=== PATIENT | female | born 1955 | race Caucasian/White ===

== ENCOUNTER 2017-01-04 03:44 | Emergency (ER) | payer MEDICARE, MEDICAID ==
[~2017-01-04] VITALS: Ht 160 cm; Wt 100.0 kg
[~2017-01-04 03:44] MED LIST: ADVIL200 MG PO; ALAVERT10 M1 PO; ALBUTEROL0.83 MG/ML IH; ALLERGY SHOT INJ; AMIODARONE PO; AMOXICILLIN 50500 MG PO; AMOXICILLIN 8751 TAB PO; ASTELIN NASAL S34 ML; ASTELIN NASAL S34 ML NS; ATARAX25 MG PO; BACTRIM DS 8001 TAB PO; BENADRYL25 M2 PO; CARAFATE 1GM1 G PO; CARDIZEM CD 18180 MG PO; CARDIZEM CD 24240 MG PO; CEFTIN 250250 MG/TAB PO; CEFTIN250 M1 PO; CEFTIN500 MG PO; CELEBREX 200MG200 MG PO; CEPHALEXIN250 M1 PO; CEPHALEXIN500 M1 PO; CIPRO 500MG TA500 MG PO; CLEOCIN HC150 MG/CAP PO; CLEOCIN HCL300 MG PO; COLACE 100100 MG/CAP PO; COUMADIN 5MG5 MG/TAB PO; COZAAR25 MG PO; DARVOCET N; DEMEROL 50M50 MG/TAB PO; DEMEROL IJ; DIFLUCAN 100MG100 MG PO; DIFLUCAN50 MG PO; DILTIAZEM240 M1 PO; DULERA1 AR1 IH; ENABLEX 7.5MG7.5 MG; EPIPEN 2-PAK1 MG/ML IM; FLEXERIL 1010 MG/TAB PO; FLONASE NASAL S16 GM NS; FLONASEALLERGY NS; FOLIC ACID 40400 MCG PO; FOLIC ACID1 MG PO; HYDROCODONE BIT1 T41 PO; HYDROCODONE/APAP; HYDROMORPHONE HC2 MG PO; HYDROXYCHLOROQUINE PO; IMITREX 25MG TA25 MG PO; IMITREX 6M6 MG/0.5 M SQ; IMITREX ST4 MG/0.5 M SC; IRON325 M1 PO; LEVAQUIN 5500 MG/TA1 PO; LEVAQUIN 5500 MG/TAB PO; LEVAQUIN 750MG750 M1 PO; LEVOFLOXACIN; LIDO35.4 TP; LIDODERM PATCH TP; LISINOPRIL10 MG PO; LORTAB 10/500 51 TAB PO; LORTAB 5/500 501 TAB PO; LORTAB 7.5/5001 TAB PO; LOVENOX 100100 MG/ML SQ; LOVENOX 4040 MG/0.4 SQ; MACROBID 1100 MG/CAP; MACROBID 1100 MG/CAP PO; MACRODANTIN25 MG PO; MEPERIDINE HCL50 MG PO; MIRALAX 17GM PK1 PKT PO; MYRBETR50MG PO; NAPROSYN500 MG PO; NEURONTIN300 MG/CAP PO; NEURONTIN600 MG PO; NEURONTIN600 MG/TAB PO; NEXIUM 40MG40 MG PEG; NEXIUM 40MG40 MG PO; NEXIUM40 MG PO; NORCO 325 MG-51 TAB PO; NORCO 325 MG-7.1 TAB PO; PERCOCET 325 MG1 TA2 PO; PERCOCET 325 MG1 TA3 PO; PHENERGAN 25 TA25 MG PO; PHENERGAN25 MG RC; PREDNISONE20 MG PO; PREMARIN 0.60.625 MG PO; PROAIR HFA0.09 MG/AC IH; PROTONIX 40MG T40 MG PO; PROVENTIL0.09 MG/A1 IH; PYRIDIATE200 MG PO; PYRIDIUM 100MG100 MG PO; PYRIDIUM200 M1 PO; ROXICODONE 55 MG/TAB PO; SEPTRA DS 8001 TAB PO; SINGULAIR10 MG PO; TESSALON P100 MG/CAP PO; URICALM PO; VENTOLIN0.09 MG IH; VERAMYST27.5 MCG/A NS; VESICARE10 MG PO; VICODIN 5/5001 UDTAB PO; VITAMIN C PUR1000 MG PO; XANAX .25M0.25 MG/TA PO; XARELTO20 MG PO; ZETIA 10MG TAB10 MG PO; ZETIA10 MG PO; ZITHROMAX250 M1 PO; ZOFRAN 4MG T4 MG/TAB PO; ZOFRAN 8MG8 MG PO; ZOFRAN ODT4 MG PO; ZOFRAN ODT8 MG PO; ZOFRAN4 MG PO; ZOVIRAX 200MG200 MG PO; ZOVIRAX800 MG PO; ZYRTEC-D 5 MG-11 TER PO; [UNRECOGNIZED DRUG - OTHER]; [UNRECOGNIZED DRUG - OTHER] PO; vesicare PO
[2017-01-04 04:04] VITALS: TEMP 98
[2017-01-04] MEDS ORDERED: NORCO 325 MG-51 TAB PO (04:10)
[2017-01-04] MEDS ORDERED: PREDNISONE20 MG PO (04:30)
[2017-01-04] MEDS ORDERED: OMNICEF 300MG300 MG PO (04:30)
[2017-01-04 05:31] LABS: INFLUENZA B NEGATIVE
[2017-01-04 06:21] VITALS: BP 142/84; PULSE 84
== END 2017-01-04 06:22 | disposition home or self-care (01) ==
LOC: COL.ER 03:44
PROVIDERS: Emergency Medicine
DX: R51 Headache (principal); J32.9 Chronic sinusitis, unspecified; J40 Bronchitis, not specified as acute or chronic; Z86.718 Personal history of other venous thrombosis and embolism; Z79.01 Long term (current) use of anticoagulants
CPT/HCPCS: J7512

== ENCOUNTER 2017-03-14 11:10 | Emergency (ER) | payer MEDICARE, MEDICAID ==
[~2017-03-14] VITALS: Ht 160 cm; Wt 97.7 kg
[~2017-03-14 11:10] MED LIST changes: +OMNICEF 300MG300 MG PO
[2017-03-14 11:13] VITALS: TEMP 97.9
[2017-03-14] MEDS ORDERED: CEPHALEXIN500 M1 PO (11:42)
[2017-03-14 12:25] VITALS: BP 138/89; PULSE 59
== END 2017-03-14 12:29 | disposition home or self-care (01) ==
LOC: COL.ER 11:10
DX: S63.502A Unspecified sprain of left wrist, initial encounter (principal); X58.XXXA Exposure to other specified factors, initial encounter

== ENCOUNTER 2017-03-20 13:57 | Emergency (ER) | payer MEDICARE, MEDICAID ==
[~2017-03-20] VITALS: Ht 160 cm; Wt 102.3 kg
[2017-03-20 13:59] VITALS: BP 146/49; TEMP 98.7
[2017-03-20 14:45] LABS: BASO # 0.1 (0.0-0.2); BASO % 0.5 % (0.0-2.0); EOS # 0.1 (0.0-0.7); EOS % 0.6 % (0-4.0); GRAN # 7.6 (1.4-6.5); GRAN % 69.7 % (42.2-75.2); HEMATOCRIT 37.5 % (37.0-47.0); HEMOGLOBIN 12.1 g/dl (12.5-16.0); LYMPH # 2.6 (1.2-3.4); LYMPH % 23.4 % (20.0-51.0); MEAN CELL VOLUME 89 fl (80.0-100.0); MEAN CORPUSCULAR HEMOGLOBIN 29 pg (27.0-31.0); MEAN CORPUSCULAR HGB CONC 32 g/dl (33.0-37.0); MEAN PLATELET VOLUME 11.8 fl (7.4-10.4); MONO # 0.6 (0.1-0.6); MONO % 5.6 % (1.7-9.3); PLATELET COUNT 205 K/mm3 (130-400); RED BLOOD COUNT 4.22 M/mm3 (4.10-5.30); REDCELL DISTRIBUTION WIDTH-CV 13.8 % (11.5-14.5); WHITE BLOOD COUNT 10.9 K/mm3 (4.8-10.8)
[2017-03-20 14:52] LABS: ALANINE AMINOTRANSFERASE 36 U/L (9-52); ALBUMIN 3.9 gm/dL (3.5-5.0); ALKALINE PHOSPHATASE 89 U/L (50-136); ANION GAP 10 mmol/L (7-16); BILIRUBIN,TOTAL 0.7 mg/dL (0.0-1.0); BLOOD UREA NITROGEN 24 mg/dL (7-17); CALCIUM 8.9 mg/dL (8.4-10.2); CARBON DIOXIDE 24 mmol/L (22-30); CHLORIDE 104 mmol/L (98-107); GLUCOSE 96 mg/dL (74-106); LIPASE 27 U/L (23-300); POTASSIUM 3.8 mmol/L (3.4-5.0); SODIUM 138 mmol/L (137-145); TOTAL PROTEIN 6.8 gm/dL (6.4-8.2)
[2017-03-20 15:04] LABS: B-TYPE NATRIURETIC PEPTIDE 129 pg/mL (0-125)
[2017-03-20 15:09] LABS: PARTIAL THROMBOPLASTIN TIME 38.1 SECONDS (26.0-37.0); TROPONIN-I < 0.012 ng/mL (0.000-0.034)
[2017-03-20 15:15] LABS: INR 1.5 (0.8-3.0); PROTHROMBIN TIME 16.3 SECONDS (9.7-12.8)
[2017-03-20 16:10] VITALS: PULSE 71
== END 2017-03-20 16:10 | disposition home or self-care (01) ==
LOC: COL.ER 13:57
PROVIDERS: Emergency Medicine
DX: R07.9 Chest pain, unspecified (principal); I10 Essential (primary) hypertension; Z85.3 Personal history of malignant neoplasm of breast; D68.51 Activated protein C resistance

== ENCOUNTER 2017-03-29 17:43 | Emergency (ER) | payer MEDICARE, MEDICAID ==
[~2017-03-29] VITALS: Ht 160 cm; Wt 101.4 kg
[2017-03-29 17:50] VITALS: TEMP 98.5
[2017-03-29 19:45] VITALS: BP 144/91; PULSE 70
== END 2017-03-29 19:45 | disposition home or self-care (01) ==
LOC: COL.ER 17:43
DX: G43.909 Migraine, unspecified, not intractable, without status migrainosus (principal); I10 Essential (primary) hypertension; Z79.01 Long term (current) use of anticoagulants; D68.51 Activated protein C resistance
CPT/HCPCS: J0595; J2550

== ENCOUNTER 2017-04-26 09:43 | Emergency (ER) | payer MEDICARE, MEDICAID ==
[~2017-04-26] VITALS: Ht 160 cm; Wt 100.0 kg
[2017-04-26 09:55] VITALS: BP 150/74; PULSE 62; TEMP 97.7
[2017-04-26 11:05] LABS: BASO # 0.1 (0.0-0.2); BASO % 0.6 % (0.0-2.0); EOS # 0.1 (0.0-0.7); EOS % 1.2 % (0-4.0); GRAN # 5.2 (1.4-6.5); GRAN % 67.4 % (42.2-75.2); HEMOGLOBIN 13.3 g/dl (12.5-16.0); LYMPH # 1.9 (1.2-3.4); LYMPH % 24.7 % (20.0-51.0); MEAN CELL VOLUME 89 fl (80.0-100.0); MEAN CORPUSCULAR HEMOGLOBIN 30 pg (27.0-31.0); MEAN CORPUSCULAR HGB CONC 33 g/dl (33.0-37.0); MEAN PLATELET VOLUME 11.8 fl (7.4-10.4); MONO # 0.5 (0.1-0.6); MONO % 5.8 % (1.7-9.3); PLATELET COUNT 209 K/mm3 (130-400); RED BLOOD COUNT 4.48 M/mm3 (4.10-5.30); REDCELL DISTRIBUTION WIDTH-CV 13.2 % (11.5-14.5); WHITE BLOOD COUNT 7.8 K/mm3 (4.8-10.8)
[2017-04-26 11:10] LABS: PH 7 (5-8); SQUAMOUS EPITHELIAL 0-2 /hpf; URINE APPEARANCE Clear; URINE BILIRUBIN Negative (NEGATIVE); URINE BLOOD Negative (NEGATIVE); URINE COLOR Yellow; URINE GLUCOSE Negative (NEGATIVE); URINE KETONE Negative (NEGATIVE); URINE RBC 0-2 /hpf; URINE UROBILINOGEN Negative (NEGATIVE)
[2017-04-26 11:13] LABS: URINE BACTERIA Occasional /hpf
[2017-04-26 11:16] LABS: ADJUSTED CALCIUM 9.1 mg/dL (8.4-10.2); ALBUMIN 4.3 gm/dL (3.5-5.0); BILIRUBIN,TOTAL 0.8 mg/dL (0.0-1.0); CALCIUM 9.3 mg/dL (8.4-10.2); CREATININE, serum 0.61 mg/dL (0.52-1.25); TOTAL PROTEIN 7.4 gm/dL (6.4-8.2)
[2017-04-26] MEDS ORDERED: PYRIDIUM 100MG100 MG PO (11:37)
[2017-04-26] MEDS ORDERED: DIFLUCAN150 MG PO (11:37)
[2017-04-26] MEDS ORDERED: PERCOCET 325 MG1 TA2 PO (11:37)
[2017-04-26] MEDS ORDERED: CEFTIN 250250 MG/TAB PO (11:37)
== END 2017-04-26 12:07 | disposition home or self-care (01) ==
LOC: COL.ER 09:43
PROVIDERS: Nurse Practitioner
DX: N39.0 Urinary tract infection, site not specified (principal)
CPT/HCPCS: J2550

== ENCOUNTER → 2017-06-04 | Outpatient (CLI) | payer MEDICARE, MEDICAID ==
[~2017-06-04] MED LIST changes: +DIFLUCAN150 MG PO
== END ==
LOC: MC.RAD 08:15
DX: Z01.89 Encounter for other specified special examinations (principal)

== ENCOUNTER 2017-11-23 07:05 | Emergency (ER) | payer MEDICARE, MEDICAID ==
[~2017-11-23] VITALS: Ht 160 cm; Wt 100.0 kg
[2017-11-23 07:07] VITALS: TEMP 98.1
[2017-11-23] MEDS ORDERED: NORCO 325 MG-51 TAB PO (07:27)
[2017-11-23] MEDS ORDERED: XARELTO20 MG PO (07:28)
[2017-11-23 07:57] LABS: COLLECTION METHOD CLEAN CATCH
[2017-11-23 08:13] LABS: MUCOUS Present /lpf; PH 6 (5-8); SQUAMOUS EPITHELIAL 0-2 /hpf; URINE APPEARANCE Clear; URINE BACTERIA None Seen /hpf; URINE BILIRUBIN Negative (NEGATIVE); URINE BLOOD Negative (NEGATIVE); URINE COLOR Straw; URINE GLUCOSE Negative (NEGATIVE); URINE KETONE Negative (NEGATIVE); URINE LEUKOCYTE ESTERASE Negative (NEGATIVE); URINE NITRATE Negative (NEGATIVE); URINE PROTEIN(semi-quant) Negative (NEGATIVE); URINE RBC 0-2 /hpf; URINE UROBILINOGEN Negative (NEGATIVE)
[2017-11-23 09:20] LABS: ALANINE AMINOTRANSFERASE 30 U/L (9-52); ALBUMIN 4.4 gm/dL (3.5-5.0); ALKALINE PHOSPHATASE 116 U/L (50-136); ANION GAP 11 mmol/L (7-16); AST,SGOT 20 U/L (15-37); BILIRUBIN,TOTAL 0.6 mg/dL (0.0-1.0); BLOOD UREA NITROGEN 16 mg/dL (7-17); CALCIUM 9.4 mg/dL (8.4-10.2); CARBON DIOXIDE 25 mmol/L (22-30); CHLORIDE 105 mmol/L (98-107); CREATININE, serum 0.59 mg/dL (0.52-1.25); GLUCOSE 108 mg/dL (74-106); LIPASE 22 U/L (23-300); POTASSIUM 3.9 mmol/L (3.4-5.0); SODIUM 140 mmol/L (137-145); TOTAL PROTEIN 7.2 gm/dL (6.4-8.2)
[2017-11-23 09:29] LABS: BASO % 0.5 % (0.0-2.0); EOS % 0.2 % (0-4.0); GRAN # 6.1 (1.4-6.5); GRAN % 72.2 % (42.2-75.2); HEMATOCRIT 39.8 % (37.0-47.0); HEMOGLOBIN 13.4 g/dl (12.5-16.0); LYMPH # 1.9 (1.2-3.4); LYMPH % 22.1 % (20.0-51.0); MEAN CELL VOLUME 86 fl (80.0-100.0); MEAN CORPUSCULAR HEMOGLOBIN 29 pg (27.0-31.0); MEAN CORPUSCULAR HGB CONC 34 g/dl (33.0-37.0); MEAN PLATELET VOLUME 12.3 fl (7.4-10.4); MONO # 0.4 (0.1-0.6); MONO % 4.9 % (1.7-9.3); PLATELET COUNT 168 K/mm3 (130-400); RED BLOOD COUNT 4.62 M/mm3 (4.10-5.30); REDCELL DISTRIBUTION WIDTH-CV 13.3 % (11.5-14.5)
[2017-11-23 09:31] LABS: TROPONIN-I < 0.012 ng/mL (0.000-0.034)
[2017-11-23] MEDS ORDERED: CARAFATE 1GM1 G PO (10:38)
[2017-11-23] MEDS ORDERED: PHENERGAN 25 TA25 MG PO (10:38)
[2017-11-23] MEDS ORDERED: PERCOCET 325 MG1 TA2 PO (11:39)
[2017-11-23 11:49] VITALS: BP 150/68; PULSE 70
== END 2017-11-23 11:49 | disposition home or self-care (01) ==
LOC: COL.ER 07:05
PROVIDERS: Emergency Medicine
DX: R10.13 Epigastric pain (principal); M79.7 Fibromyalgia; F41.9 Anxiety disorder, unspecified; Z90.89 Acquired absence of other organs; Z90.49 Acquired absence of other specified parts of digestive tract; Z87.891 Personal history of nicotine dependence; Z90.710 Acquired absence of both cervix and uterus
CPT/HCPCS: J2175

== ENCOUNTER → 2017-12-16 | Outpatient (CLI) | payer MEDICARE, MEDICAID | LOC: COL.RAD 12-15 10:30 | DX: K22.4 Dyskinesia of esophagus (principal); K21.9 Gastro-esophageal reflux disease without esophagitis; K44.9 Diaphragmatic hernia without obstruction or gangrene ==

== ENCOUNTER 2018-02-06 16:38 | Emergency (ER) | payer MEDICARE, MEDICAID ==
[~2018-02-06] VITALS: Ht 160 cm; Wt 98.2 kg
[2018-02-06 16:39] VITALS: TEMP 97.8
[2018-02-06] MEDS ORDERED: AMOXICILLIN 8751 TAB PO (17:05)
[2018-02-06 18:20] LABS: BASO # 0.1 (0.0-0.2); BASO % 0.4 % (0.0-2.0); EOS % 0.4 % (0-4.0); GRAN # 8.1 (1.4-6.5); GRAN % 71.8 % (42.2-75.2); HEMATOCRIT 40.8 % (37.0-47.0); HEMOGLOBIN 13.4 g/dl (12.5-16.0); LYMPH # 2.4 (1.2-3.4); LYMPH % 21.1 % (20.0-51.0); MEAN CELL VOLUME 87 fl (80.0-100.0); MEAN CORPUSCULAR HEMOGLOBIN 29 pg (27.0-31.0); MEAN CORPUSCULAR HGB CONC 33 g/dl (33.0-37.0); MEAN PLATELET VOLUME 12.5 fl (7.4-10.4); MONO # 0.7 (0.1-0.6); PLATELET COUNT 218 K/mm3 (130-400); RED BLOOD COUNT 4.68 M/mm3 (4.10-5.30); REDCELL DISTRIBUTION WIDTH-CV 13.3 % (11.5-14.5)
[2018-02-06 18:50] LABS: ALBUMIN 3.7 gm/dL (3.5-5.0); BILIRUBIN,TOTAL 0.3 mg/dL (0.0-1.0); CALCIUM 8.4 mg/dL (8.4-10.2); CREATININE, serum 0.67 mg/dL (0.52-1.25); POTASSIUM 3.9 mmol/L (3.4-5.0); TOTAL PROTEIN 6.4 gm/dL (6.4-8.2)
[2018-02-06 19:21] VITALS: BP 149/63; PULSE 71
== END 2018-02-06 19:22 | disposition home or self-care (01) ==
LOC: COL.ER 16:38
PROVIDERS: Emergency Medicine
DX: R19.7 Diarrhea, unspecified (principal); I10 Essential (primary) hypertension; K58.9 Irritable bowel syndrome, unspecified; K21.9 Gastro-esophageal reflux disease without esophagitis; J44.9 Chronic obstructive pulmonary disease, unspecified; Z87.11 Personal history of peptic ulcer disease; Z79.51 Long term (current) use of inhaled steroids; Z79.01 Long term (current) use of anticoagulants
CPT/HCPCS: J2550; J7030

== ENCOUNTER 2018-02-10 21:55 | Emergency (ER) | payer MEDICARE, MEDICAID ==
[~2018-02-10] VITALS: Ht 160 cm; Wt 98.2 kg
[2018-02-10 21:58] VITALS: BP 148/84; TEMP 97.7
[2018-02-10 23:20] VITALS: PULSE 67
== END 2018-02-10 23:20 | disposition home or self-care (01) ==
LOC: COL.ER 21:55
DX: S86.912A Strain of unspecified muscle(s) and tendon(s) at lower leg level, left leg, initial encounter (principal); I10 Essential (primary) hypertension; J45.909 Unspecified asthma, uncomplicated; Z90.710 Acquired absence of both cervix and uterus; Z90.49 Acquired absence of other specified parts of digestive tract; Z98.890 Other specified postprocedural states; Z79.51 Long term (current) use of inhaled steroids; X50.0XXA Overexertion from strenuous movement or load, initial encounter

== ENCOUNTER 2018-03-09 18:14 | Emergency (ER) | payer MEDICARE, MEDICAID ==
[2018-03-09 18:16] VITALS: BP 187/82; TEMP 98.9
[2018-03-09] MEDS ORDERED: VITAMINC1000TA (18:57)
[2018-03-09] MEDS ORDERED: NATURAL IRON65 MG (18:57)
[2018-03-09] MEDS ORDERED: D3-5050000 IU (18:57)
[2018-03-09 19:27] VITALS: PULSE 56
== END 2018-03-09 19:28 | disposition home or self-care (01) ==
LOC: COL.ER 18:14
DX: G43.909 Migraine, unspecified, not intractable, without status migrainosus (principal); I10 Essential (primary) hypertension; J45.909 Unspecified asthma, uncomplicated; D68.51 Activated protein C resistance; Z87.39 Personal history of other diseases of the musculoskeletal system and connective tissue; Z87.891 Personal history of nicotine dependence; Z90.49 Acquired absence of other specified parts of digestive tract; Z90.89 Acquired absence of other organs
CPT/HCPCS: J0595; J2550

== ENCOUNTER 2018-05-15 18:28 | Emergency (ER) | payer MEDICARE, MEDICAID ==
[~2018-05-15] VITALS: Ht 160 cm; Wt 93.2 kg
[~2018-05-15 18:28] MED LIST changes: +D3-5050000 IU; +NATURAL IRON65 MG; +VITAMINC1000TA
[2018-05-15 18:34] VITALS: BP 144/70; PULSE 91; TEMP 98.1
[2018-05-15] MEDS ORDERED: SINGULAIR 110 MG/TAB PO (19:02)
[2018-05-15] MEDS ORDERED: CRANBERRY500 M3 PO (19:03)
[2018-05-15] MEDS ORDERED: MEDROL 4MG DOSPA4 MG PO (19:23)
== END 2018-05-15 19:52 | disposition home or self-care (01) ==
LOC: COL.ER 18:28
DX: R22.32 Localized swelling, mass and lump, left upper limb (principal); I10 Essential (primary) hypertension; M79.7 Fibromyalgia; E78.5 Hyperlipidemia, unspecified; K21.9 Gastro-esophageal reflux disease without esophagitis; Z98.890 Other specified postprocedural states
CPT/HCPCS: J7509

== ENCOUNTER → 2018-06-11 | Emergency (ER) | payer MEDICARE, MEDICAID ==
[~2018-06-11] VITALS: Ht 160 cm; Wt 102.3 kg
[~2018-06-11] MED LIST changes: +CRANBERRY500 M3 PO; +MEDROL 4MG DOSPA4 MG PO; +SINGULAIR 110 MG/TAB PO
[2018-06-11 16:18] VITALS: BP 162/74; PULSE 67; TEMP 98.1
== END ==
LOC: COL.ER 16:12
DX: G43.909 Migraine, unspecified, not intractable, without status migrainosus (principal); I10 Essential (primary) hypertension; Z90.49 Acquired absence of other specified parts of digestive tract; Z90.89 Acquired absence of other organs; Z90.710 Acquired absence of both cervix and uterus; Z98.890 Other specified postprocedural states; Z86.73 Personal history of transient ischemic attack (TIA), and cerebral infarction without residual deficits
CPT/HCPCS: J2175; J2550

== ENCOUNTER → 2018-06-11 | Outpatient (CLI) | payer MEDICARE, MEDICAID | LOC: COL.RAD 13:24 | DX: R10.9 Unspecified abdominal pain (principal); Z90.49 Acquired absence of other specified parts of digestive tract | CPT/HCPCS: Q9967 ==

== ENCOUNTER 2018-06-22 15:05 | Emergency (ER) | payer MEDICARE, MEDICAID ==
[~2018-06-22] VITALS: Ht 160 cm; Wt 100.0 kg
[2018-06-22 15:10] VITALS: BP 151/90; TEMP 97.7
[2018-06-22 18:30] VITALS: PULSE 72
== END 2018-06-22 18:30 | disposition home or self-care (01) ==
LOC: COL.ER 15:05
DX: G43.909 Migraine, unspecified, not intractable, without status migrainosus (principal); I10 Essential (primary) hypertension; J45.909 Unspecified asthma, uncomplicated; M79.7 Fibromyalgia; K58.9 Irritable bowel syndrome, unspecified; Z87.891 Personal history of nicotine dependence
CPT/HCPCS: J0595; J2550

== ENCOUNTER 2018-08-03 17:01 | Emergency (ER) | payer MEDICARE, MEDICAID ==
[~2018-08-03] VITALS: Ht 160 cm; Wt 96.4 kg
[2018-08-03 17:10] VITALS: TEMP 98
[2018-08-03 18:32] LABS: HEMATOCRIT 39.3 % (37.0-47.0); HEMOGLOBIN 13.2 g/dl (12.5-16.0); MEAN CELL VOLUME 89 fl (80.0-100.0); MEAN CORPUSCULAR HEMOGLOBIN 30 pg (27.0-31.0); MEAN CORPUSCULAR HGB CONC 34 g/dl (33.0-37.0); MEAN PLATELET VOLUME 11.3 fl (7.4-10.4); PLATELET COUNT 220 K/mm3 (130-400); RED BLOOD COUNT 4.43 M/mm3 (4.10-5.30); REDCELL DISTRIBUTION WIDTH-CV 13.2 % (11.5-14.5)
[2018-08-03 18:47] LABS: ALBUMIN 3.9 gm/dL (3.5-5.0); BILIRUBIN,TOTAL 0.4 mg/dL (0.0-1.0); CALCIUM 8.8 mg/dL (8.4-10.2); CREATININE, serum 0.72 mg/dL (0.52-1.25); POTASSIUM 3.9 mmol/L (3.4-5.0); TOTAL PROTEIN 6.9 gm/dL (6.4-8.2)
[2018-08-03 19:45] VITALS: BP 121/78; PULSE 80
== END 2018-08-03 19:45 | disposition home or self-care (01) ==
LOC: COL.ER 17:01
PROVIDERS: Emergency Medicine
DX: M25.562 Pain in left knee (principal); M23.52 Chronic instability of knee, left knee; I82.409 Acute embolism and thrombosis of unspecified deep veins of unspecified lower extremity; E66.9 Obesity, unspecified; Z79.01 Long term (current) use of anticoagulants
CPT/HCPCS: L1846

== ENCOUNTER 2018-09-30 07:12 | Emergency (ER) | payer MEDICARE, MEDICAID ==
[~2018-09-30] VITALS: Ht 160 cm; Wt 97.7 kg
[2018-09-30 07:18] VITALS: BP 134/92; TEMP 97
[2018-09-30] MEDS ORDERED: AMOXICILLIN 8751 TAB PO (07:48)
[2018-09-30 07:54] VITALS: PULSE 72
[2018-09-30] MEDS ORDERED: AIMOVIG AU70 MG/1 ML SQ (07:54)
== END 2018-09-30 08:00 | disposition home or self-care (01) ==
LOC: COL.ER 07:12
DX: K02.9 Dental caries, unspecified (principal)

== ENCOUNTER 2018-10-05 07:56 | Emergency (ER) | payer MEDICARE, MEDICAID ==
[~2018-10-05] VITALS: Ht 160 cm; Wt 97.7 kg
[~2018-10-05 07:56] MED LIST changes: +AIMOVIG AU70 MG/1 ML SQ
[2018-10-05] MEDS ORDERED: CIPRO 500MG TA500 MG PO (10:02)
[2018-10-05 10:47] VITALS: BP 157/84; PULSE 63; TEMP 96.7
== END 2018-10-05 10:48 | disposition home or self-care (01) ==
LOC: COL.ER 07:56
DX: H60.11 Cellulitis of right external ear (principal); I10 Essential (primary) hypertension; Z90.710 Acquired absence of both cervix and uterus; Z90.89 Acquired absence of other organs; Z90.49 Acquired absence of other specified parts of digestive tract; Z98.890 Other specified postprocedural states; Z90.13 Acquired absence of bilateral breasts and nipples
CPT/HCPCS: J8540

== ENCOUNTER → 2018-12-30 | Outpatient (CLI) | payer MEDICARE, MEDICAID | LOC: COL.RAD 08:27 | DX: N28.89 Other specified disorders of kidney and ureter (principal); Z90.49 Acquired absence of other specified parts of digestive tract; Z90.710 Acquired absence of both cervix and uterus | CPT/HCPCS: Q9967 ==

== ENCOUNTER 2019-01-04 08:33 | Day surgery (SDC) | payer MEDICARE, MEDICAID ==
[~2019-01-04] VITALS: Ht 160 cm; Wt 102.3 kg
[2019-01-04 09:55] VITALS: BP 152/89; PULSE 70; TEMP 97.6
[2019-01-04] MEDS ORDERED: BENTYL 10MG10 MG/CAP PO (11:10)
[2019-01-04 11:20] VITALS: BP 131/75; PULSE 69; TEMP 97.5
[2019-01-04 11:35] VITALS: BP 147/76; PULSE 58
[2019-01-04 11:50] VITALS: BP 141/70; PULSE 60
[2019-01-04 12:05] VITALS: BP 143/75; PULSE 64
[2019-01-04 12:20] VITALS: BP 137/69; PULSE 59
== END 2019-01-04 12:50 | disposition home or self-care (01) ==
LOC: SDCO 08:33
DX: R11.0 Nausea (principal); R10.84 Generalized abdominal pain; K21.9 Gastro-esophageal reflux disease without esophagitis; J45.909 Unspecified asthma, uncomplicated; E78.00 Pure hypercholesterolemia, unspecified; M19.90 Unspecified osteoarthritis, unspecified site; E11.9 Type 2 diabetes mellitus without complications; K58.0 Irritable bowel syndrome with diarrhea; M79.7 Fibromyalgia; I73.00 Raynaud's syndrome without gangrene; K59.09 Other constipation; K31.7 Polyp of stomach and duodenum; F32.9 Major depressive disorder, single episode, unspecified; F41.9 Anxiety disorder, unspecified; G43.909 Migraine, unspecified, not intractable, without status migrainosus; G89.29 Other chronic pain; D64.9 Anemia, unspecified; Z86.010 Personal history of colon polyps; Z85.3 Personal history of malignant neoplasm of breast; Z87.440 Personal history of urinary (tract) infections; Z79.01 Long term (current) use of anticoagulants; Z88.1 Allergy status to other antibiotic agents; Z88.5 Allergy status to narcotic agent; Z88.3 Allergy status to other anti-infective agents; Z91.040 Latex allergy status; Z88.8 Allergy status to other drugs, medicaments and biological substances; Z91.048 Other nonmedicinal substance allergy status; Z91.041 Radiographic dye allergy status; Z90.13 Acquired absence of bilateral breasts and nipples; Z96.653 Presence of artificial knee joint, bilateral; Z86.73 Personal history of transient ischemic attack (TIA), and cerebral infarction without residual deficits
CPT/HCPCS: J2405; J2704; J7120

== ENCOUNTER 2019-03-26 18:40 | Emergency (ER) | payer MEDICARE, MEDICAID ==
[~2019-03-26] VITALS: Ht 160 cm; Wt 77.3 kg
[~2019-03-26 18:40] MED LIST changes: +BENTYL 10MG10 MG/CAP PO
[2019-03-26 18:44] VITALS: TEMP 97
[2019-03-26 19:05] LABS: COLLECTION METHOD CLEAN CATCH
[2019-03-26 19:14] LABS: MUCOUS Present /lpf; PH 5 (5-8); SQUAMOUS EPITHELIAL 0-2 /hpf; URINE APPEARANCE Hazy; URINE BACTERIA None Seen /hpf; URINE BILIRUBIN Negative (NEGATIVE); URINE BLOOD 1+ (NEGATIVE); URINE COLOR Yellow; URINE GLUCOSE Negative (NEGATIVE); URINE KETONE Negative (NEGATIVE); URINE LEUKOCYTE ESTERASE 2+ (NEGATIVE); URINE NITRATE Negative (NEGATIVE); URINE PROTEIN(semi-quant) Negative (NEGATIVE); URINE UROBILINOGEN >=4.0 mg/dL (NEGATIVE)
[2019-03-26] MEDS ORDERED: OMNICEF 300MG300 MG PO (19:36)
[2019-03-26] MEDS ORDERED: AZO URINARY PAI95 MG PO (19:36)
[2019-03-26 19:40] VITALS: BP 139/68; PULSE 74
[2019-03-28] MEDS ORDERED: AMOXICILLIN 50500 MG PO (13:14)
== END 2019-03-26 19:40 | disposition home or self-care (01) ==
LOC: COL.ER 18:40
PROVIDERS: Emergency Medicine
DX: N39.0 Urinary tract infection, site not specified (principal); N12 Tubulo-interstitial nephritis, not specified as acute or chronic

== ENCOUNTER 2019-05-18 11:06 | Emergency (ER) | payer MEDICARE, MEDICAID ==
[~2019-05-18] VITALS: Ht 160 cm; Wt 97.7 kg
[~2019-05-18 11:06] MED LIST changes: +AZO URINARY PAI95 MG PO
[2019-05-18 11:25] VITALS: BP 134/89; PULSE 77; TEMP 97
[2019-05-18 12:42] LABS: COLLECTION METHOD CLEAN CATCH
[2019-05-18 12:48] LABS: PH 6 (5-8); SQUAMOUS EPITHELIAL 0-2 /hpf; URINE APPEARANCE Clear; URINE BACTERIA None Seen /hpf; URINE BILIRUBIN Negative (NEGATIVE); URINE BLOOD Negative (NEGATIVE); URINE COLOR Yellow; URINE GLUCOSE Negative (NEGATIVE); URINE KETONE Negative (NEGATIVE); URINE LEUKOCYTE ESTERASE Negative (NEGATIVE); URINE NITRATE Negative (NEGATIVE); URINE PROTEIN(semi-quant) Negative (NEGATIVE); URINE RBC 0-2 /hpf; URINE UROBILINOGEN Negative (NEGATIVE)
[2019-05-18 13:20] LABS: BASO % 0.5 % (0.0-2.0); EOS # 0.1 (0.0-0.7); EOS % 0.9 % (0-4.0); GRAN # 4.4 (1.4-6.5); GRAN % 58.6 % (42.2-75.2); HEMATOCRIT 43.9 % (37.0-47.0); HEMOGLOBIN 14.6 g/dl (12.5-16.0); LYMPH # 2.4 (1.2-3.4); LYMPH % 32.4 % (20.0-51.0); MEAN CELL VOLUME 90 fl (80.0-100.0); MEAN CORPUSCULAR HEMOGLOBIN 30 pg (27.0-31.0); MEAN CORPUSCULAR HGB CONC 33 g/dl (33.0-37.0); MEAN PLATELET VOLUME 11.5 fl (7.4-10.4); MONO # 0.6 (0.1-0.6); MONO % 7.3 % (1.7-9.3); PLATELET COUNT 219 K/mm3 (130-400); RED BLOOD COUNT 4.89 M/mm3 (4.10-5.30)
[2019-05-18 13:34] LABS: ALANINE AMINOTRANSFERASE 22 U/L (9-52); ALBUMIN 4.2 gm/dL (3.5-5.0); ALKALINE PHOSPHATASE 114 U/L (50-136); ANION GAP 10 mmol/L (7-16); AST,SGOT 28 U/L (15-37); BILIRUBIN,TOTAL 0.6 mg/dL (0.0-1.0); BLOOD UREA NITROGEN 21 mg/dL (7-17); CALCIUM 9.1 mg/dL (8.4-10.2); CARBON DIOXIDE 26 mmol/L (22-30); CHLORIDE 100 mmol/L (98-107); CREATININE, serum 0.62 (0.52-1.25); GLUCOSE 86 mg/dL (74-106); POTASSIUM 4.2 mmol/L (3.4-5.0); SODIUM 136 mmol/L (137-145); TOTAL PROTEIN 7.5 gm/dL (6.4-8.2)
[2019-05-18 13:35] LABS: C-REACTIVE PROTEIN < 0.5 mg/dL (0.0-0.9)
== END 2019-05-18 13:39 | disposition home or self-care (01) ==
LOC: COL.ER 11:06
PROVIDERS: Physician Assistant
DX: R30.0 Dysuria (principal); R10.9 Unspecified abdominal pain; R11.0 Nausea; M79.7 Fibromyalgia; G43.909 Migraine, unspecified, not intractable, without status migrainosus; Z90.49 Acquired absence of other specified parts of digestive tract; Z90.710 Acquired absence of both cervix and uterus; Z95.9 Presence of cardiac and vascular implant and graft, unspecified; Z86.718 Personal history of other venous thrombosis and embolism
CPT/HCPCS: J2405

== ENCOUNTER 2019-07-17 13:45 | Emergency (ER) | payer MEDICARE, MEDICAID ==
[~2019-07-17] VITALS: Ht 160 cm; Wt 96.4 kg
[2019-07-17] MEDS ORDERED: LIDODERM 5% PATC1 EA TP (14:57)
[2019-07-17 15:10] VITALS: BP 116/72; PULSE 74; TEMP 98.3
== END 2019-07-17 15:15 | disposition home or self-care (01) ==
LOC: COL.ER 13:45
DX: S39.012A Strain of muscle, fascia and tendon of lower back, initial encounter (principal); M25.562 Pain in left knee; G43.909 Migraine, unspecified, not intractable, without status migrainosus; Z95.5 Presence of coronary angioplasty implant and graft; Z87.891 Personal history of nicotine dependence; Z90.710 Acquired absence of both cervix and uterus; W01.0XXA Fall on same level from slipping, tripping and stumbling without subsequent striking against object, initial encounter; Y92.22 Religious institution as the place of occurrence of the external cause

== ENCOUNTER 2019-08-04 10:53 | Emergency (ER) | payer MEDICARE, MEDICAID ==
[~2019-08-04] VITALS: Ht 160 cm; Wt 97.5 kg
[~2019-08-04 10:53] MED LIST changes: +LIDODERM 5% PATC1 EA TP
[2019-08-04 11:00] VITALS: TEMP 98
[2019-08-04] MEDS ORDERED: OMNICEF 300MG300 MG PO (11:34)
[2019-08-04] MEDS ORDERED: VENTOLIN0.09 MG IH (12:11)
[2019-08-04 13:22] VITALS: BP 128/66; PULSE 73
== END 2019-08-04 13:30 | disposition home or self-care (01) ==
LOC: COL.ER 10:53
DX: J45.909 Unspecified asthma, uncomplicated (principal); J06.9 Acute upper respiratory infection, unspecified; J20.9 Acute bronchitis, unspecified; J01.90 Acute sinusitis, unspecified; M79.7 Fibromyalgia; G43.909 Migraine, unspecified, not intractable, without status migrainosus; Z85.3 Personal history of malignant neoplasm of breast; Z86.718 Personal history of other venous thrombosis and embolism; Z90.89 Acquired absence of other organs; Z90.710 Acquired absence of both cervix and uterus

== ENCOUNTER 2019-08-19 08:29 | Emergency (ER) | payer MEDICARE, MEDICAID ==
[~2019-08-19] VITALS: Ht 160 cm; Wt 99.1 kg
[2019-08-19 08:39] VITALS: BP 141/74; TEMP 97.5
[2019-08-19] MEDS ORDERED: FLONASEALLERGY NS (09:42)
[2019-08-19 10:00] VITALS: PULSE 70
== END 2019-08-19 10:03 | disposition home or self-care (01) ==
LOC: COL.ER 08:29
DX: J30.9 Allergic rhinitis, unspecified (principal); M79.7 Fibromyalgia; Z87.891 Personal history of nicotine dependence; Z90.710 Acquired absence of both cervix and uterus; Z85.3 Personal history of malignant neoplasm of breast

== ENCOUNTER 2019-09-28 08:37 | Emergency (ER) | payer MEDICARE, MEDICAID ==
[~2019-09-28] VITALS: Ht 160 cm; Wt 90.9 kg
[2019-09-28 08:40] VITALS: BP 148/80; TEMP 96.8
[2019-09-28] MEDS ORDERED: COMBIRESP IH (08:58)
[2019-09-28] MEDS ORDERED: ZITHROMAX Z PA250 MG PO (08:58)
[2019-09-28] MEDS ORDERED: MEDROL 4MG DOSPA4 MG PO (08:58)
[2019-09-28] MEDS ORDERED: VENTOLIN0.09 MG IH (10:21)
[2019-09-28 10:23] VITALS: PULSE 63
== END 2019-09-28 10:23 | disposition home or self-care (01) ==
LOC: COL.ER 08:37
DX: J45.901 Unspecified asthma with (acute) exacerbation (principal); J20.9 Acute bronchitis, unspecified; Z79.51 Long term (current) use of inhaled steroids
CPT/HCPCS: J7512

== ENCOUNTER 2020-01-15 12:43 | Emergency (ER) | payer MEDICARE, MEDICAID ==
[~2020-01-15] VITALS: Ht 160 cm; Wt 102.3 kg
[~2020-01-15 12:43] MED LIST changes: +COMBIRESP IH; +ZITHROMAX Z PA250 MG PO
[2020-01-15 12:48] VITALS: BP 186/77; TEMP 97.5
[2020-01-15] MEDS ORDERED: AIMOVIG AU70 MG/1 M1 SQ (13:09)
[2020-01-15] MEDS ORDERED: NEXIUM 20MG20 MG PO (13:10)
[2020-01-15] MEDS ORDERED: MICROZIDE12.5 MG PO (13:10)
[2020-01-15] MEDS ORDERED: D3-5050000 IU (13:44)
[2020-01-15] MEDS ORDERED: MAGNESIUM ELEM300 MG PO (13:44)
[2020-01-15 14:15] VITALS: PULSE 66
== END 2020-01-15 14:16 | disposition home or self-care (01) ==
LOC: COL.ER 12:43
DX: G43.909 Migraine, unspecified, not intractable, without status migrainosus (principal); I73.00 Raynaud's syndrome without gangrene; Z79.51 Long term (current) use of inhaled steroids; Z79.01 Long term (current) use of anticoagulants; Z79.52 Long term (current) use of systemic steroids
CPT/HCPCS: J1200; J1885; J2550

== ENCOUNTER → 2020-04-26 | Outpatient (CLI) | payer MEDICARE ==
[~2020-04-26] MED LIST changes: +AIMOVIG AU70 MG/1 M1 SQ; +MAGNESIUM ELEM300 MG PO; +MICROZIDE12.5 MG PO; +NEXIUM 20MG20 MG PO
== END ==
LOC: COL.RAD 07:21
DX: K21.9 Gastro-esophageal reflux disease without esophagitis (principal)
CPT/HCPCS: A9541

== ENCOUNTER 2020-06-28 16:45 | Emergency (ER) | payer MEDICARE ==
[~2020-06-28] VITALS: Ht 160 cm; Wt 102.3 kg
[2020-06-28 16:48] VITALS: TEMP 98
[2020-06-28] MEDS ORDERED: CARAFATE 1GM1 G PO (17:33)
[2020-06-28] MEDS ORDERED: ZYRTEC 10MG10 MG PO (17:35)
[2020-06-28 18:01] LABS: BASO # 0.1 (0.0-0.2); BASO % 0.4 % (0.0-2.0); EOS # 0.1 (0.0-0.7); EOS % 0.7 % (0-4.0); GRAN # 7.9 (1.4-6.5); GRAN % 64.2 % (42.2-75.2); HEMATOCRIT 44.3 % (37.0-47.0); HEMOGLOBIN 14.7 g/dl (12.5-16.0); LYMPH # 3.5 (1.2-3.4); LYMPH % 28.1 % (20.0-51.0); MEAN CELL VOLUME 89 fl (80.0-100.0); MEAN CORPUSCULAR HEMOGLOBIN 30 pg (27.0-31.0); MEAN CORPUSCULAR HGB CONC 33 g/dl (33.0-37.0); MEAN PLATELET VOLUME 11.6 fl (7.4-10.4); MONO # 0.8 (0.1-0.6); MONO % 6.3 % (1.7-9.3); PLATELET COUNT 251 K/mm3 (130-400); RED BLOOD COUNT 4.99 M/mm3 (4.10-5.30); REDCELL DISTRIBUTION WIDTH-CV 12.9 % (11.5-14.5)
[2020-06-28 18:07] LABS: INR 1.9 (0.8-3.0); PROTHROMBIN TIME 21.2 SECONDS (9.7-12.8)
[2020-06-28 18:27] LABS: ALANINE AMINOTRANSFERASE 22 U/L (4-34); ALBUMIN 4.6 gm/dL (3.5-5.0); ALKALINE PHOSPHATASE 114 U/L (50-136); ANION GAP 10 mmol/L (7-16); AST,SGOT 28 U/L (15-37); BILIRUBIN,TOTAL 0.6 mg/dL (0.0-1.0); BLOOD UREA NITROGEN 27 mg/dL (7-17); CALCIUM 9.8 mg/dL (8.4-10.2); CARBON DIOXIDE 24 mmol/L (22-30); CHLORIDE 103 mmol/L (98-107); CREATININE, serum 1.11 (0.52-1.25); GLUCOSE 91 mg/dL (74-106); LIPASE 45 U/L (23-300); SODIUM 137 mmol/L (137-145); TOTAL PROTEIN 8.1 gm/dL (6.4-8.2)
[2020-06-28 18:29] LABS: C-REACTIVE PROTEIN 0.5 mg/dL (0.0-0.9)
[2020-06-28 18:36] LABS: TROPONIN-I < 0.012 ng/mL (0.000-0.035)
[2020-06-28 19:55] VITALS: BP 126/54; PULSE 63
== END 2020-06-28 19:55 | disposition home or self-care (01) ==
LOC: COL.ER 16:45
PROVIDERS: Emergency Medicine
DX: R07.89 Other chest pain (principal); R53.81 Other malaise; Z90.89 Acquired absence of other organs; Z90.710 Acquired absence of both cervix and uterus; Z95.9 Presence of cardiac and vascular implant and graft, unspecified; Z79.01 Long term (current) use of anticoagulants; Z85.3 Personal history of malignant neoplasm of breast; Z86.718 Personal history of other venous thrombosis and embolism
CPT/HCPCS: J7030

== ENCOUNTER → 2020-07-05 | Outpatient (CLI) | payer MEDICARE ==
[~2020-07-05] MED LIST changes: +ZYRTEC 10MG10 MG PO
[2020-07-05 10:40] LABS: HEMATOCRIT 42.6 % (37.0-47.0); HEMOGLOBIN 14.6 g/dl (12.5-16.0); MEAN CELL VOLUME 87 fl (80.0-100.0); MEAN CORPUSCULAR HEMOGLOBIN 30 pg (27.0-31.0); MEAN CORPUSCULAR HGB CONC 34 g/dl (33.0-37.0); MEAN PLATELET VOLUME 11.5 fl (7.4-10.4); PLATELET COUNT 222 K/mm3 (130-400); RED BLOOD COUNT 4.91 M/mm3 (4.10-5.30); REDCELL DISTRIBUTION WIDTH-CV 12.6 % (11.5-14.5)
[2020-07-05 10:58] LABS: ERYTHROCYTE SEDIMENTATION RATE 10 mm/hr (0-30)
== END ==
LOC: COL.LAB 10:05
PROVIDERS: Orthopaedic Surgery
DX: Z96.652 Presence of left artificial knee joint (principal)

== ENCOUNTER 2021-10-08 14:13 | Emergency (ER) | payer MEDICARE ==
[~2021-10-08] VITALS: Ht 160 cm; Wt 102.3 kg
[2021-10-08 14:35] VITALS: BP 163/88; TEMP 97.9
[2021-10-08 16:48] VITALS: PULSE 61
== END 2021-10-08 16:49 | disposition home or self-care (01) ==
LOC: COL.ER 14:13
DX: M79.662 Pain in left lower leg (principal); E66.9 Obesity, unspecified; I25.10 Atherosclerotic heart disease of native coronary artery without angina pectoris; Z88.5 Allergy status to narcotic agent; Z86.718 Personal history of other venous thrombosis and embolism; Z96.652 Presence of left artificial knee joint; Z68.39 Body mass index [BMI] 39.0-39.9, adult; Z98.890 Other specified postprocedural states; Z79.01 Long term (current) use of anticoagulants

== ENCOUNTER 2022-04-10 07:57 | Emergency (ER) | payer OTHER, MEDICARE, MEDICAID ==
[~2022-04-10] VITALS: Ht 160 cm; Wt 90.9 kg
[2022-04-10 07:59] VITALS: TEMP 98.4
[2022-04-10] MEDS ORDERED: NORCO 325 MG-51 TAB PO (10:15)
[2022-04-10 10:30] VITALS: BP 139/83; PULSE 73
[2022-04-10] MEDS ORDERED: CRUTCHES MC (10:49)
== END 2022-04-10 10:45 | disposition home or self-care (01) ==
LOC: COL.ER 07:57
DX: S82.842A Displaced bimalleolar fracture of left lower leg, initial encounter for closed fracture (principal); M25.562 Pain in left knee; M25.552 Pain in left hip; Z98.890 Other specified postprocedural states; Z91.040 Latex allergy status; W01.198A Fall on same level from slipping, tripping and stumbling with subsequent striking against other object, initial encounter; Y92.59 Other trade areas as the place of occurrence of the external cause; Y99.0 Civilian activity done for income or pay
CPT/HCPCS: J3010

== ENCOUNTER 2022-04-10 16:45 | Emergency (ER) | payer OTHER, MEDICARE, MEDICAID ==
[~2022-04-10] VITALS: Ht 160 cm; Wt 90.9 kg
[~2022-04-10 16:45] MED LIST changes: +CRUTCHES MC
[2022-04-10 16:48] VITALS: TEMP 98.8
[2022-04-10 18:15] VITALS: BP 159/66; PULSE 84
--- NOTE | 2022-04-11 15:18 | NUR ---
[employer] received consult in ED for patient who was seen twice yesterday for a fractured ankle and requested to be admitted, however there was no medical reason to admit and she was discharged home. KATY attempted to contact patient and left a message. KATY then spoke with patient's daughter, Dahiana who verbalized concerns about patient's ability to care for herself and the condition of her home. Dahiana advised patient has "stuff" in her tub so she is concerned patient has not been bathing. Dahiana also advised she had difficulty getting through the door of patient's home due to the amount of clutter and is concerned patient is hoarding. Dahiana reported patient has two dogs and the home was covered in uring and feces. Dahiana advised she made a report to the police department as she feels patient's dogs have been severely neglected. Per report from Dahiana and ED notes, patient has a rollator, cane, knee walker, and crutches at home. KATY discussed placement options vs home health as patient has both Medicare [employer] and Medicaid. Dahiana feels placement would be ideal, but not sure what patient will be agreeable to. KATY contacted Dr. Sawyer's nurse and left a message. KATY then made a report to [facility] (intake#[id number]). SW received a phone call from patient who advised she is really struggling at home. KATY discussed options including exploring prison options or home health. Patient firmly states she will not go to a prison. Patient is interested in HH but does not want a referral sent at this time because she wants to figure out what her workmans comp is going to pay for as she sustained this injury at work. KATY offered multiple times to make HH referral and patient prefers to wait on this. Patient states she is tentatively scheduled for surgery next week if the swelling on her ankle goes down.
--- NOTE | 2022-04-14 16:23 | NUR ---
[employer]acer contacted patient to attempt to follow up. Patient did not answer so SW left a message. KATY contacted EVANS Ramirez who advised case screened in and she will make a home visit tomorrow.
== END 2022-04-10 18:15 | disposition home or self-care (01) ==
LOC: COL.ER 16:45
DX: S82.842A Displaced bimalleolar fracture of left lower leg, initial encounter for closed fracture (principal); Z91.040 Latex allergy status; Z88.1 Allergy status to other antibiotic agents; Z28.310 Unvaccinated for COVID-19; X58.XXXA Exposure to other specified factors, initial encounter

== ENCOUNTER → 2024-02-03 | Outpatient (CLI) | payer MEDICARE, MEDICAID ==
[~2024-02-03] MED LIST changes: +LASIX 20MG TABL20 MG PO
== END ==
LOC: COL.RAD 15:00
DX: M25.562 Pain in left knee (principal); Z96.652 Presence of left artificial knee joint

== ENCOUNTER 2024-03-16 16:27 | Emergency (ER) | payer MEDICARE, MEDICAID ==
[~2024-03-16] VITALS: Ht 162.6 cm; Wt 90.9 kg
[2024-03-16 16:31] VITALS: TEMP 98
[2024-03-16 16:48] LABS: BASO # 0.1 K/mm3 (0.0-0.2); BASO % 0.5 % (0.0-2.0); EOS # 0.1 K/mm3 (0.0-0.7); EOS % 1.1 % (0.0-4.0); GRAN # 6.8 K/mm3 (1.4-6.5); GRAN % 59.5 % (42.2-75.2); HEMATOCRIT 39.5 % (37.0-47.0); HEMOGLOBIN 13.4 g/dl (12.5-16.0); LYMPH # 3.7 K/mm3 (1.2-3.4); LYMPH % 32.5 % (20.0-51.0); MEAN CELL VOLUME 89 fl (80.0-100.0); MEAN CORPUSCULAR HEMOGLOBIN 30 pg (27-31); MEAN CORPUSCULAR HGB CONC 34 g/dl (33.0-37.0); MEAN PLATELET VOLUME 11.6 fl (7.4-10.4); MONO # 0.7 K/mm3 (0.1-0.6); MONO % 6.2 % (1.7-9.3); PLATELET COUNT 235 K/mm3 (130-400); RED BLOOD COUNT 4.46 M/mm3 (4.10-5.30); REDCELL DISTRIBUTION WIDTH-CV 12.8 % (11.5-14.5)
[2024-03-16] MEDS ORDERED: LORazepam 2 MG/ML 1 ML VIAL IV ONE (17:00)
[2024-03-16] MEDS ORDERED: Ondansetron 4 MG/2 ML VIAL IV ONE (17:00)
[2024-03-16 17:02] LABS: ALANINE AMINOTRANSFERASE 16 U/L (0-55); ALBUMIN 3.9 g/dL (3.4-4.8); ALKALINE PHOSPHATASE 111 U/L (40-150); ANION GAP 13 mmol/L (7-16); AST,SGOT 19 U/L (5-34); BILIRUBIN,TOTAL 0.4 mg/dL (0.2-1.2); BLOOD UREA NITROGEN 28 mg/dL (10-20); CALCIUM 9.4 mg/dL (8.4-10.2); CHLORIDE 101 mEq/L (98-107); CREATININE, serum 1.15 mg/dL (0.57-1.11); GLUCOSE 102 mg/dL (70-99); LIPASE 16 U/L (8-78); SODIUM 138 mEq/L (136-145); TOTAL PROTEIN 6.9 g/dl (6.2-8.1)
[2024-03-16 17:07] LABS: TROPONIN-I < 0.010 ng/mL (0.00-0.033)
[2024-03-16] MEDS ORDERED: NS 1,000 ML IV ONE (17:30)
[2024-03-16 17:53] LABS: COLLECTION METHOD CLEAN CATCH
[2024-03-16 17:58] LABS: URINE APPEARANCE CLEAR (CLEAR/HAZY); URINE BLOOD NEGATIVE (NEGATIVE); URINE COLOR YELLOW (YELLOW); URINE GLUCOSE NEGATIVE (NEGATIVE); URINE KETONE NEGATIVE (NEGATIVE); URINE NITRATE NEGATIVE (NEGATIVE); URINE PROTEIN(semi-quant) NEGATIVE (NEGATIVE)
[2024-03-16 18:47] VITALS: BP 156/86; PULSE 70
== END 2024-03-16 18:48 | disposition home or self-care (01) ==
LOC: COL.ER 16:27
PROVIDERS: Physician Assistant
DX: R07.2 Precordial pain (principal); D72.829 Elevated white blood cell count, unspecified; D68.51 Activated protein C resistance; Z79.01 Long term (current) use of anticoagulants; Z91.040 Latex allergy status
CPT/HCPCS: J2060; J2405; J7030

== ENCOUNTER 2024-05-28 13:55 | Emergency (ER) | payer MEDICARE, MEDICAID ==
[~2024-05-28] VITALS: Ht 162.6 cm; Wt 97.7 kg
[2024-05-28 14:09] VITALS: BP 153/81; TEMP 98.5
[2024-05-28] MEDS ORDERED: Ketorolac 30 MG/ML VIAL IM ONE (14:30)
[2024-05-28] MEDS ORDERED: diphenhydrAMINE 50 MG/ML 1 ML VIAL IM ONE (14:30)
[2024-05-28 15:15] VITALS: PULSE 70
== END 2024-05-28 15:15 | disposition home or self-care (01) ==
LOC: COL.ER 13:55
DX: G43.909 Migraine, unspecified, not intractable, without status migrainosus (principal); Z91.040 Latex allergy status
CPT/HCPCS: J0780; J1200; J1885

== ENCOUNTER 2024-06-25 10:00 | Emergency (ER) | payer MEDICARE, MEDICAID ==
[~2024-06-25] VITALS: Ht 165.1 cm; Wt 92.3 kg
[~2024-06-25 10:00] MED LIST changes: +CIPRO 250MG TA250 MG PO
[2024-06-25 10:26] LABS: COLLECTION METHOD CLEAN CATCH
[2024-06-25] MEDS ORDERED: NS 1,000 ML IV ONE (10:30)
[2024-06-25] MEDS ORDERED: Ondansetron 4 MG/2 ML VIAL IV ONE (10:30)
[2024-06-25 10:40] LABS: URINE APPEARANCE Cloudy (CLEAR/HAZY); URINE COLOR Yellow (YELLOW)
[2024-06-25 10:41] LABS: PH 5.5 (5.0-8.5); URINE BLOOD 3+ (NEGATIVE); URINE GLUCOSE Negative (NEGATIVE); URINE KETONE Negative (NEGATIVE); URINE NITRATE Positive (NEGATIVE); URINE PROTEIN(semi-quant) 2+ (NEGATIVE)
[2024-06-25 10:49] LABS: BASO % 0.3 % (0.0-2.0); EOS # 0.1 K/mm3 (0.0-0.7); EOS % 0.9 % (0.0-4.0); GRAN # 6.7 K/mm3 (1.4-6.5); GRAN % 72.6 % (42.2-75.2); HEMATOCRIT 41.5 % (37.0-47.0); LYMPH # 1.9 K/mm3 (1.2-3.4); LYMPH % 20.7 % (20.0-51.0); MEAN CELL VOLUME 87 fl (80.0-100.0); MEAN CORPUSCULAR HEMOGLOBIN 29 pg (27-31); MEAN CORPUSCULAR HGB CONC 34 g/dl (33.0-37.0); MEAN PLATELET VOLUME 11.2 fl (7.4-10.4); MONO # 0.5 K/mm3 (0.1-0.6); MONO % 5.4 % (1.7-9.3); PLATELET COUNT 217 K/mm3 (130-400); RED BLOOD COUNT 4.76 M/mm3 (4.10-5.30); REDCELL DISTRIBUTION WIDTH-CV 14.2 % (11.5-14.5)
[2024-06-25] MEDS ORDERED: cefTRIAXone 1 G in Water For Injection,Sterile 10 ML IV ONE (11:00)
[2024-06-25 11:03] LABS: ALBUMIN 3.8 g/dL (3.4-4.8); BILIRUBIN,TOTAL 0.7 mg/dL (0.2-1.2); CALCIUM 9.5 mg/dL (8.4-10.2); POTASSIUM 3.9 mEq/L (3.5-4.5)
[2024-06-25] MEDS ORDERED: CEFTIN500 MG PO (11:12)
[2024-06-25] MEDS ORDERED: AZO URINARY PAI95 MG PO (11:18)
[2024-06-25 12:00] VITALS: BP 205/96; PULSE 59; TEMP 97.8
== END 2024-06-25 12:00 | disposition home or self-care (01) ==
LOC: COL.ER 10:00
PROVIDERS: Physician Assistant
DX: N39.0 Urinary tract infection, site not specified (principal); R11.0 Nausea; Z91.040 Latex allergy status; Z88.1 Allergy status to other antibiotic agents
CPT/HCPCS: J0696; J2405; J7030

== ENCOUNTER 2024-07-25 10:51 | Emergency (ER) | payer MEDICARE, MEDICAID ==
[~2024-07-25] VITALS: Ht 162.6 cm; Wt 97.7 kg
[2024-07-25 10:59] VITALS: TEMP 98.2
[2024-07-25 11:09] LABS: COLLECTION METHOD CLEAN CATCH
[2024-07-25 11:29] LABS: PH 5.5 (5.0-8.5); URINE APPEARANCE TURBID (CLEAR/HAZY); URINE BLOOD 3+ (NEGATIVE); URINE COLOR ORANGE (YELLOW); URINE GLUCOSE NEGATIVE (NEGATIVE); URINE KETONE NEGATIVE (NEGATIVE); URINE NITRATE POSITIVE (NEGATIVE); URINE PROTEIN(semi-quant) 2+ (NEGATIVE)
[2024-07-25] MEDS ORDERED: NS 1,000 ML IV ONE (11:30)
[2024-07-25] MEDS ORDERED: Morphine 4 MG/ML VIAL IV ONE (11:30)
[2024-07-25 12:00] LABS: URINE BACTERIA MANY /hpf (NONE SEEN); URINE RBC 0-2 /hpf (0-2); URINE WBC >50 /hpf (0-2)
[2024-07-25 12:13] LABS: BASO % 0.4 % (0.0-2.0); EOS # 0.1 K/mm3 (0.0-0.7); EOS % 0.9 % (0.0-4.0); GRAN # 6.7 K/mm3 (1.4-6.5); GRAN % 73.2 % (42.2-75.2); HEMATOCRIT 41.4 % (37.0-47.0); HEMOGLOBIN 13.7 g/dl (12.5-16.0); LYMPH # 1.8 K/mm3 (1.2-3.4); LYMPH % 19.7 % (20.0-51.0); MEAN CELL VOLUME 91 fl (80.0-100.0); MEAN CORPUSCULAR HEMOGLOBIN 30 pg (27-31); MEAN CORPUSCULAR HGB CONC 33 g/dl (33.0-37.0); MEAN PLATELET VOLUME 12.1 fl (7.4-10.4); MONO # 0.5 K/mm3 (0.1-0.6); MONO % 5.4 % (1.7-9.3); PLATELET COUNT 233 K/mm3 (130-400); RED BLOOD COUNT 4.56 M/mm3 (4.10-5.30); REDCELL DISTRIBUTION WIDTH-CV 14.3 % (11.5-14.5)
[2024-07-25 12:15] LABS: ALBUMIN 3.4 g/dL (3.4-4.8); BILIRUBIN,TOTAL 0.5 mg/dL (0.2-1.2); CALCIUM 9.2 mg/dL (8.4-10.2); CREATININE, serum 1.11 mg/dL (0.57-1.11); POTASSIUM 4.3 mEq/L (3.5-4.5); TOTAL PROTEIN 6.7 g/dl (6.2-8.1)
[2024-07-25] MEDS ORDERED: cefTRIAXone 1 G in Water For Injection,Sterile 10 ML IV ONE (13:15)
[2024-07-25] MEDS ORDERED: PERCOCET 325 MG1 TA2 PO ×2 (13:36→13:40)
[2024-07-25] MEDS ORDERED: LEVAQUIN 750MG750 M1 PO (13:36)
[2024-07-25 14:00] VITALS: BP 155/81; PULSE 69
== END 2024-07-25 14:05 | disposition home or self-care (01) ==
LOC: COL.ER 10:51
PROVIDERS: Personal Emergency Response Attendant; Physician Assistant
DX: N39.0 Urinary tract infection, site not specified (principal); R10.2 Pelvic and perineal pain; Z88.1 Allergy status to other antibiotic agents; Z91.040 Latex allergy status
CPT/HCPCS: J0696; J2270; J7030

== ENCOUNTER 2024-09-10 13:31 | Emergency (ER) | payer MEDICARE, MEDICAID ==
[~2024-09-10] VITALS: Ht 162.6 cm; Wt 101.4 kg
[2024-09-10 13:36] VITALS: TEMP 98.3
[2024-09-10] MEDS ORDERED: Ketorolac 15 MG/ML VIAL IV ONE (14:15)
[2024-09-10] MEDS ORDERED: diphenhydrAMINE 50 MG/ML 1 ML VIAL IV ONE (14:15)
[2024-09-10] MEDS ORDERED: NS 1,000 ML IV ONE (14:15)
[2024-09-10] MEDS ORDERED: Ondansetron 4 MG/2 ML VIAL IV ONE (14:15)
[2024-09-10 15:48] LABS: COLLECTION METHOD CLEAN CATCH
[2024-09-10 15:56] LABS: PH 5.5 (5.0-8.5); URINE APPEARANCE CLEAR (CLEAR/HAZY); URINE BLOOD NEGATIVE (NEGATIVE); URINE COLOR YELLOW (YELLOW); URINE GLUCOSE NEGATIVE (NEGATIVE); URINE KETONE NEGATIVE (NEGATIVE); URINE NITRATE NEGATIVE (NEGATIVE); URINE PROTEIN(semi-quant) NEGATIVE (NEGATIVE)
[2024-09-10] MEDS ORDERED: Nitrofurantoin (Mono/Macro) 100 MG CAP PO ONE (16:30)
[2024-09-10] MEDS ORDERED: MACROBID 1100 MG/CAP PO (17:03)
[2024-09-10 17:20] VITALS: BP 177/85; PULSE 58
== END 2024-09-10 17:12 | disposition home or self-care (01) ==
LOC: COL.ER 13:31
PROVIDERS: Nurse Practitioner
DX: G43.909 Migraine, unspecified, not intractable, without status migrainosus (principal); T43.295A Adverse effect of other antidepressants, initial encounter; Z85.3 Personal history of malignant neoplasm of breast
CPT/HCPCS: J1200; J1885; J2405; J7030